=== PATIENT | female | born 1990 ===

== ENCOUNTER 2017-05-03 16:24 | Emergency (ER) | payer OTHER ==
[2017-05-03 16:33] VITALS: BP 138/69
--- NOTE | 2017-05-03 17:26 | UC ---
Lower Extremity/Ankle HPI - HPI Summary HPI Summary: 26 y/o female presents to the urgent care c/o Rt foot pain since Monday. Pt reports she usually walks between 5-7 miles every day, however Monday she wore different sneakers. pain is 6/10 w/ movement. Pain is 6/10 with mild swelling on the lateral side of her foot. Pt denies any trauma, numbness or tingling sensation, sOB, chest pain, abdominal pain, N/V/D - History of Current Complaint Chief Complaint: UCLowerExtremity Stated Complaint: FOOT COMPLAINT Time Seen by Provider: 05/03/17 17:24 Hx Obtained From: Patient Hx Last Menstrual Period: 2 WEEKS AGO ?: No Onset/Duration: Gradual Onset, Lasting Days - 4 days, Still Present Severity Initially: Mild Severity Currently: Moderate Pain Intensity: 6 Pain Scale Used: 0-10 Numeric Aggravating Factor(s): Ambulation Alleviating Factor(s): Rest Able to Bear Weight: Yes - Risk Factors Gout Risk Factors: Negative DVT Risk Factors: Negative Septic Arthritis Risk Factor: Negative - Allergies/Home Medications Allergies/Adverse Reactions: Allergies Allergy/AdvReac Type Severity Reaction Status Date / Time Penicillins Allergy Hives Verified 05/03/17 16:28 Home Medications: Home Medications Testosterone 0.25 mg PO WEEKLY 05/03/17 [History Confirmed 05/03/17] PMH/Surg Hx/FS Hx/Imm Hx Previously Healthy: Yes - Pt denies PMHX Other History Of: Negative For: Anticoagulant Therapy - Surgical History Surgical History: None - Family History Known Family History: Positive: Hypertension Family History: Dyslipidemia - Social History Occupation: Employed Full-time Lives: With Family Alcohol Use: Occasionally Substance Use Type: None Smoking Status (MU): Current Every Day Smoker Type: Cigarettes Amount Used/How Often: 5 CIG/WEEK - Immunization History Most Recent Influenza Vaccination: unsure Most Recent Tetanus Shot: unsure, UTD Review of Systems Constitutional: Negative Skin: Negative Eyes: Negative ENT: Negative Respiratory: Negative Cardiovascular: Negative Gastrointestinal: Negative Genitourinary: Negative Motor: Negative Neurovascular: Negative Musculoskeletal: Other: - RT foot pain around plantar and lateral side Neurological: Negative Psychological: Negative Is Patient Immunocompromised?: No All Other Systems Reviewed And Are Negative: Yes Physical Exam Triage Information Reviewed: Yes Vital Signs: Initial Vital Signs Temp 98 F 05/03/17 16:30 Pulse 78 05/03/17 16:30 Resp 16 05/03/17 16:30 BP 138/69 05/03/17 16:30 Pulse Ox 100 05/03/17 16:30 - Additional Comments Vital Signs Reviewed: Yes General : well developed, well nourished female adolescent w/o any apparent distress Eyes: Positive: Conjunctiva Clear - PERRLA, EOMI ENT: Positive: Normal ENT inspection, Hearing grossly normal, Pharynx normal, TMs normal Neck: Positive: Supple, Nontender, No Lymphadenopathy Respiratory: Positive: Chest non-tender, Lungs clear, Normal breath sounds, No respiratory distress Cardiovascular: Positive: RRR, No Murmur, Pulses Normal Abdomen Description: Positive: Nontender, No Organomegaly, Soft. Negative: CVA Tenderness (R), CVA Tenderness (L) Bowel Sounds: Positive: Present Musculoskeletal: Positive: Strength Intact, ROM Intact, No Edema, RT- Foot/Toes : Pt is able to bear weight , no limping. RT foot :No surface trauma, ecchymosis, erythema, lesions, ulcers or break in skin integrity. The R foot is without obvious asymmetry or deformity when compared to the L foot. No bony step-off, No tenderness to palpation over toes, point tenderness over the mid plantar side of mid foot and the hid foot and the base of the 4th and 5th metatarsal and sole at the same level, , Decrease plantar/dorsiflexion, inversion/eversion due to pain. Distal motor and neurovascular status are intact. Neurological Exam: Normal Psychological Exam: Normal Skin Exam: Normal Lower Extremity Course/Dx - Course Course Of Treatment: 26 y/o female presents to the urgent care c/o Rt foot pain since Monday04/30/2017. Pt reports she usually walks between 5-7 miles every day , however Monday she wore different sneakers. pain is 6/10 w/ movement. Pain is 6/10 with mild swelling on the lateral side of her foot. Pt denies any trauma, numbness or tingling sensation, SOB, chest pain, abdominal pain, N/V/D. Hx obtained. RT foot X-ray ordered, Impression:There was no fracture, dislocation, soft tissue swelling or FB noted. Probably plantar fasciitis or tendonitis. Pt' s foot immobilized with ernie-bandage and given a post-op shoe to avoid flexion. Advised RICE, and Rx Naproxen PO for pain, If not improvement of symptoms to f/ u with Orthopedic DR referral for further evaluation and treatment. Pt understood and agreed with D/C instructions. - Differential Dx/Diagnosis Differential Diagnosis/HQI/PQRI: Contusion, Fracture (Closed), Puncture Wound, Sprain, Strain, Tendonitis Provider Diagnoses: 1- Acute Rt foot pain Discharge - Discharge Plan Condition: Stable Disposition: HOME Prescriptions: Naproxen [Naproxen 500 mg] 500 mg PO Q8H PRN #30 tab PRN Reason: Pain Patient Education Materials: Plantar Fasciitis Exercises (GEN), Plantar Fasciitis (ED), Tendinitis (ED) Referrals: [facility] [place] [facility] [Outside] - 1 Week Noel Crabtree MD [Medical Doctor] - 1 Week Additional Instructions: 1-Please take medications as directed to alleviate pain and swelling. 2-Please apply ice, keep your foot immobilized with the Ernie bandage adn avoid flexion with post-op shoe. Avoid strenuous exercise or standing for long periods of time, long walks 3- Please f/u with your PCP or Orthopedic Dr Crabtree in 7 days if not improvement of symptoms for further evaluation and treatment.
--- NOTE | 2017-05-03 17:46 | RAD ---
Indication: Right foot pain. 3 views of the right foot are reviewed. There is no evidence of fracture. No other bone or joint abnormality is noted. IMPRESSION: No fracture of the right foot is noted.
== END 2017-05-03 18:25 | disposition home or self-care (01) ==
LOC: UCEAST 16:24
DX: M79.671 Pain in right foot (principal); Z88.0 Allergy status to penicillin; F17.210 Nicotine dependence, cigarettes, uncomplicated
CPT/HCPCS: 99212; G0463

== ENCOUNTER 2017-11-23 15:36 | Emergency (ER) | payer OTHER ==
[2017-11-23 15:52] VITALS: BP 104/71
--- NOTE | 2017-11-23 16:45 | UC ---
Jonathon Dawson Elizabeth, scribed for Katharine Martinez MD on 11/23/17 at 1632 . Back Pain HPI - HPI Summary HPI Summary: This patient is a 27 year old M presenting to [facility] with a chief complaint of constant lower back pain since 1 day ago. The patient notes that the pain does not radiate. The patient rates the pain 6/10 in severity. Symptoms aggravated by movement. Symptoms alleviated by nothing. Patient reports urgency and frequency with urination, and decrease in appetite. The patient also notes that he has been having pretty bad acid reflux for the past year but the pain has been improved with a heating pad. Patient denies dysuria, hematuria, fever, chills, or discharge. The patient is transitioning to a male and has not yet have gender reassignment surgery. No history of ovarian cyst. The patient has been taking weekly testosterone for 1 year. The patient has hx of occasional, cyclic abdominal cramping and LNMP was 1 year ago. Patient denies possibility of . Patient notes no hx of ovarian cysts. The patient has taken ibuprofen but notes that it has not alleviated his symptoms. Pt also reports has epigastric burning and reflux x 1 year. Pt does not take medication for it - states has intermittently taken Tums with improvement. pt does not have a PCP and inquired any suggestions Pt's medications reviewed this visit - History of Current Complaint Chief Complaint: UCBackPain Stated Complaint: BACK PAIN Time Seen by Provider: 11/23/17 16:18 Hx Obtained From: Patient Hx Last Menstrual Period: 2 WEEKS AGO Onset/Duration: Sudden Onset, Lasting Days - 1 day, Still Present Timing: Constant Severity Initially: Mild Severity Currently: Mild Pain Intensity: 6 Pain Scale Used: 0-10 Numeric Back Pain: Is Discrete @ - lower back Aggravating Factor(s): Movement Alleviating Factor(s): Nothing Associated Signs And Symptoms: Positive: Other - urgency and frequency with urination - Allergies/Home Medications Allergies/Adverse Reactions: Allergies Allergy/AdvReac Type Severity Reaction Status Date / Time Penicillins Allergy Hives Verified 11/23/17 15:52 PMH/Surg Hx/FS Hx/Imm Hx Previously Healthy: Yes Other History Of: Negative For: Anticoagulant Therapy - Surgical History Surgical History: None - Family History Known Family History: Positive: Hypertension Family History: Dyslipidemia - Social History Occupation: Employed Full-time Lives: With Family Alcohol Use: Occasionally Substance Use Type: Marijuana Smoking Status (MU): Former Smoker Type: Cigarettes Amount Used/How Often: 5 CIG/WEEK When Did the Patient Quit Smoking/Using Tobacco: 09/2017 - Immunization History Most Recent Influenza Vaccination: unsure Most Recent Tetanus Shot: unsure, UTD Review of Systems Constitutional: Negative - negative fever, negative chills ENT: Negative - negative epistaxis Genitourinary: Negative - negative dysuria, negative hematuria, negative discharge, Frequency, Urgency Musculoskeletal: Myalgia - lower back pain All Other Systems Reviewed And Are Negative: Yes Physical Exam - Summary Physical Exam Summary: Vital Signs Reviewed: Yes A+Ox3, no distress Eyes: Conjunctiva Clear, IMER. EOM intact and full ENT: Hearing grossly normal TM x 2 clear, mmoist, uvula midline, no exudate, no erythema Neck: Positive: Supple Respiratory: Positive: No respiratory distress, No accessory muscle use + CTA throughout no w/r Cardiovascular: RRR nl s1, s2 no m/r CBT <2 sec abd soft + BS nd no guarding, no distension minimal epigastric pain - no guarding, no rebound no CVA Musculoskeletal Exam: CREWS x 4 without difficulty Strength Intact, ROM Intact No spinous process pain Pt with point tenderness T12 paraspinal area pain increases with direct palpatioin and ROM causing stretching in same Full AROM upper and lower ext upper ext movement causes mild discomfort at focal area Neurological: Positive: Alert, + sensation throughout Psychological: Positive: Normal Response To Family Skin: Positive: no rash, no ecchymosis Triage Information Reviewed: Yes Vital Signs: Initial Vital Signs Temp 98.4 F 11/23/17 15:47 Pulse 58 11/23/17 15:47 Resp 18 11/23/17 15:47 BP 104/71 11/23/17 15:47 Pulse Ox 100 11/23/17 15:47 Back Pain Course/Dx - Course Course Of Treatment: Pt with poiint tenderness left T12/L1 paraspinal area reproducible with direct palpation and ROM. Pt also with mild episgartic pain - non radiating. For back: suspect musculoskeletal - recommend heat, stretching , motrin/apap. urinaylsis normal and non concerning. for abd: Rx pepcid, reviewed dietary modifications. pt given tthe physician referral center. sx perist or concerns- recommend ED. pt comfortable and harrison greement with plan - Differential Dx/Diagnosis Provider Diagnoses: back pain. GERD Discharge - Sign-Out/Discharge Documenting (check all that apply): Discharge/Admit/Transfer - Discharge Plan Condition: Stable Disposition: HOME Discharge Disposition Comment: discharge home Prescriptions: Famotidine TAB* [Pepcid 20 MG TAB*] 20 mg PO DAILY #30 tab Patient Education Materials: Gastroesophageal Reflux Disease (DC), Thoracic Back Strain (ED) Forms: *Work Release Referrals: [facility] [place] [facility] [Outside] Additional Instructions: - Okay to alternate ibuprofen (Advil, Motrin) 600mg and Tylenol product ( Tylenol or Fenton) every 3hours as needed for pain. Take with food. Do NOT take for more than 4-5 days. - eat small, frequent meals. Avoid spicy foods, acidiic food, tomato based foods , fried food -Avoid excess caffeine and carbonated beverages For your back - okay to take pain medicaiton as oulined above -Apply moist heat to your back for 20 minutes at a time, 4-5 times a day. Once your muscles are warm, slow gentle stretching exercises are important -If you pain is uncontrolled - go to an emergency department for further treatment - you have been given the number for the physician referral center - it is recommended you contact that office for assistance with establishing with a new primary care provider - Billing Disposition and Condition Condition: STABLE Disposition: Home The documentation as recorded by the Jonathon baker Elizabeth accurately reflects the service I personally performed and the decisions made by , Katharine Martinez MD.
== END 2017-11-23 16:50 | disposition home or self-care (01) ==
LOC: UCEAST 15:36
DX: K21.9 Gastro-esophageal reflux disease without esophagitis (principal); M54.5 Low back pain; Z88.0 Allergy status to penicillin; Z87.891 Personal history of nicotine dependence
CPT/HCPCS: 81003; 99212; G0463